=== PATIENT | female | born 2000 | race Caucasian/White ===

== ENCOUNTER 2019-01-30 15:21 | Emergency (ER) | payer OTHER, SELFPAY ==
[2019-01-30 15:55] LABS: #Basophils 0.1 thou/uL (0.0-0.2); #Eosinphils 0.5 thou/uL (0.0-0.7); #Neutrophils 7.8 thou/uL (1.40-6.50); %Basophils 0.5 % (0.0-1.0); %Eosinophils 3.7 % (0.0-10.0); %Lymphocytes 24.2 % (28.0-48.0); %Monocytes 7.9 % (0.0-4.0); %Neutrophils 63.8 % (31.0-61.0); Hemoglobin 14.1 g/dL (12.0-16.0); Mean Corpuscular HGB CONC 33.8 g/dL (32.0-36.0); Mean Corpuscular Hemoglobin 30.1 pg (25.0-35.0); Mean Corpuscular Volume 88.8 fL (78.0-98.0); Mean Platelet Volume 6.1 fL (7.4-10.4); Platelet Count 333 thou/uL (130-400); RBC Distribution Width 11.4 % (11.5-14.5); Red Blood Cell (RBC) Count 4.69 mill/uL (4.00-5.20); White Blood Cell (WBC) Count 12.3 thou/uL (4.8-10.8)
[2019-01-30 16:20] LABS: ALT (SGPT) 7 U/L (8-55); AST (SGOT) 10 U/L (5-30); Albumin 4.1 g/dL (3.5-5.0); Alkaline Phosphatase 78 U/L (40-100); Anion Gap 11 mmol/L (10-20); BUN (Urea Nitrogen) 12 mg/dL (8.4-21.0); Bilirubin, Total 0.3 mg/dL (0.2-1.2); Calc. Creatinine Clearance 0 mL/min (70-130); Calcium 8.9 mg/dL (7.8-10.44); Carbon Dioxide 23 mmol/L (22-29); Chloride 104 mmol/L (98-107); Estimated GFR-MDRD Greater than 90; Globulin 2.9 g/dL (2.4-3.5); Glucose 87 mg/dL (70-105); Potassium 3.7 mmol/L (3.5-5.1); Sodium 134 mmol/L (136-145)
[2019-01-30 16:27] LABS: Bacteria/HPF 2+ HPF (None Seen); Bilirubin Negative (Negative); Blood, Urine Negative (Negative); Clarity Turbid (Clear); Glucose, Urine (Dipstick) Normal (Negative); Leukocyte 25 Leu/uL (Negative); Nitrite Negative (Negative); Protein, Urine (Dipstick) Negative (Neg-Trace); RBC/HPF 0-3 HPF (0-3); Urobilinogen Normal mg/dL (Less than 2)
--- NOTE | 2019-01-30 16:50 | ULT ---
PELVIC ULTRASOUND: 01/30/19 INDICATIONS: Pelvic pain. Possible . Uterus is slightly prominent in size. There is an intrauterine gestational sac. A yolk sac and pole are identified. The crown-rump length indicates a 6 week, 4 day gestational age. heart rat e is recorded at 124 beats per minute. Neither ovary identified. No significant free fluid identified. IMPRESSION: There is a viable intrauterine gestation with crown-rump length indicating a 6 week, 4 day gestationa l age. POS: OFF
[2019-01-30] MEDS ORDERED: Ondansetron ODT 4 MG TAB ONE (18:28)
[2019-01-31 19:13] LABS: Chlamydia by PCR Not Detected (NotDetected); GC by PCR Not Detected (NotDetected)
== END 2019-01-30 19:07 | disposition home or self-care (01) ==
LOC: ERS 15:21
DX: O99.89 Other specified diseases and conditions complicating pregnancy, childbirth and the puerperium (principal); R10.31 Right lower quadrant pain; R10.32 Left lower quadrant pain; O99.331 Smoking (tobacco) complicating pregnancy, first trimester; F17.210 Nicotine dependence, cigarettes, uncomplicated; Z3A.01 Less than 8 weeks gestation of pregnancy
CPT/HCPCS: 36415; 76856; 80053; 81003; 81015; 84702; 85025; 87480; 87491; 87510; 87591; 87660; Q0162